=== PATIENT | female | born 1980 | race Two or more races ===

== ENCOUNTER → 2020-10-16 | Outpatient (CLI) | payer BC ==
--- NOTE | 2020-10-16 14:32 | MM ---
Reason for exam: screening (asymptomatic). Baseline mammogram. History: Family history of breast cancer in maternal grandmother. Physical Findings: Nurse did not find any significant physical abnormalities on exam. MG 3D Screening Mammo W/Cad Bilateral CC and MLO view(s) were taken. The breast tissue is heterogeneously dense. This may lower the sensitivity of mammography. There is no discrete abnormality. Focal asymmetry left and right upper outer quadrants. These results were verbally communicated with the patient and result sheet given to the patient on 10/16/20. ASSESSMENT: Benign, BI-RAD 2 RECOMMENDATION: Routine screening mammogram of both breasts in 1 year.
== END | disposition home or self-care (01) ==
LOC: RADMAMWWP 13:28 → MERGE 13:40
PROVIDERS: ATTEND Obstetrics & Gynecology
DX: Z12.31 Encounter for screening mammogram for malignant neoplasm of breast (principal); Z80.3 Family history of malignant neoplasm of breast
CPT/HCPCS: 77063; 77067

== ENCOUNTER → 2022-09-02 | Outpatient (CLI) | payer BC ==
[2022-09-02 23:41] LABS: Basophils # (A) 0.04 X 10*3/uL (0.00-0.10); Basophils % (A) 0.5 %; Eosinophils # (A) 0.15 X 10*3/uL (0.04-0.35); Eosinophils % (A) 1.9 %; HCT 42.9 % (37.2-46.3); HGB 14.2 g/dL (12.0-15.0); Immature Grans, Automated 0.2 %; Lymphocytes # (A) 1.92 X 10*3/uL (0.90-5.00); Lymphocytes % (A) 23.7 %; MCH 29.3 pg (27.0-32.0); MCHC 33.1 g/dL (32.0-37.0); MCV 88.6 fL (80.0-97.0); Mean Platelet Volume 9.3 fL (9.5-12.2); Monocytes # (A) 0.45 X 10*3/uL (0.20-1.00); Monocytes % (A) 5.6 %; NRBC Per 100 WBC 0 /100 WBCS (0.0-0.0); Neutrophils # (A) 5.52 X 10*3/uL (1.80-7.70); Neutrophils % (A) 68.1 %; Platelet Count 349 X 10*3/uL (140-440); RBC 4.84 X 10*6/uL (4.10-5.20); RDW 12.8 % (11.5-14.5)
[2022-09-03 01:41] LABS: African American GFR (CKD) 105.4 (60.0-200.0); Anion Gap 11.5 mmol/L (10.00-18.00); Blood Urea Nitrogen 13.4 mg/dL (9.0-27.0); Carbon Dioxide 24.5 mmol/L (20.0-27.5); Non-African American GFR(CKD) 90.9 (60.0-200.0); Potassium 4.2 mmol/L (3.5-5.5)
[2022-09-03 13:16] LABS: Appearance,Urine Clear (Clear); Bilirubin,Urine Negative (Negative); Blood,Urine Negative (Negative); Color,Urine Yellow (Yellow); Ketones,Urine Negative (Negative); Nitrite,Urine Negative (Negative); PH, Urine 7.5 (5.0-8.0); Specific Gravity,Urine 1.013 (1.001-1.030); Urobilinogen,Urine 0.2 (0.2,1.0)
== END | disposition home or self-care (01) ==
LOC: LABPAT 13:34
PROVIDERS: ATTEND Obstetrics & Gynecology
DX: Z01.812 Encounter for preprocedural laboratory examination (principal); N94.6 Dysmenorrhea, unspecified; N92.0 Excessive and frequent menstruation with regular cycle; D25.9 Leiomyoma of uterus, unspecified
CPT/HCPCS: 80051; 81003; 82565; 82947; 84520; 85025; 87086

== ENCOUNTER 2022-09-09 05:53 | Day surgery (SDC) | payer BC ==
--- NOTE | 2022-08-29 10:47 | HP ---
HISTORY AND PHYSICAL DATE OF SURGERY: 09/09/2022. HISTORY OF PRESENT ILLNESS: The patient is a 41-year-old, 0, para 0, who initially presented to the office with a known fibroid uterus. She has had multiple times of control of both heavy and irregular bleeding with significant dysmenorrhea as well. We did attempt to place a Mirena IUD, but we were unable to do so secondary to the anatomy with a fibroid blocking the entrance to the cervical canal. Oral contraceptive pills at this time had failed to control the symptoms. She is requesting definitive therapy with hysterectomy. Examination demonstrates that she is really only a candidate for da Quinten or open approach. PAST MEDICAL HISTORY: Significant for some colon issues, and otherwise, aforementioned dysmenorrhea and menorrhagia. PAST SURGICAL HISTORY: She had a cholecystectomy in 2004, with no apparent anesthetic concerns. OBSTETRICAL HISTORY: 0, para 0. Current method of contraception is vasectomy. GYNECOLOGIC HISTORY: Unremarkable with no history of any infections to include STDs. FAMILY HISTORY: Noncontributory. 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 She is a nonsmoker and denies any other significant social concerns. CURRENT MEDICATIONS: Include only pre-oral contraceptive pills daily. ALLERGIES: She apparently had a reaction of some sort to penicillin in the past. REVIEW OF SYSTEMS: Confined to history of present illness. PHYSICAL EXAMINATION: VITAL SIGNS: Stable. The patient is afebrile. GENERAL: This is a well-developed, well-nourished, white female, in no acute distress. HEART: Has regular rhythm and rate without murmur. LUNGS: Clear to auscultation bilaterally in all antunez. ABDOMEN: Nondistended, has normoactive bowel sounds, soft, nontender, and without any palpable masses, hepatosplenomegaly, or hernias. EXTREMITIES: Without any cyanosis, clubbing, or edema and are nontender to palpation bilaterally. PELVIC: Bimanual pelvic examination demonstrates a moderately-enlarged uterus with roughly 8 cm posterior uterine fibroid. The adnexa are nonpalpable without any apparent masses bilaterally. ASSESSMENT AND PLAN: Fibroid uterus, menorrhagia, severe dysmenorrhea: As the patient has failed multiple other hormonal manipulation attempts and an intrauterine device was mechanically unable to be placed, she has requested definitive therapy. We will proceed with da Quinten robotically-assisted laparoscopic hysterectomy with bilateral salpingectomy and diagnostic cystoscopy. The risks and complications of the procedure have been thoroughly discussed including the risk for bleeding, bleeding requiring transfusion, infection, and injury to local structures to specifically include the bowel, bladder, and ureters. We additionally discussed injuries that are unique to da Quinten surgery to specifically include thermal injury and vaginal cuff dehiscence. She has understood and agreed to proceed. We are scheduled for the above date with the procedure as outlined. MMODL / IJN: [id number] /
[2022-09-04 15:59] VITALS: BMI 31.1
[2022-09-09] MEDS ORDERED: LACTATED RINGERS 1,000 ML IV SCH ×2 (06:00→10:15)
[2022-09-09] MEDS ORDERED: DEXAMETHASONE SOD PHOSPHATE 4 MG/ML 1 ML VIAL IV ONE (06:00)
[2022-09-09] MEDS ORDERED: ONDANSETRON 4 MG/2 ML VIAL IVP ONE (06:00)
[2022-09-09] MEDS ORDERED: HYDROmorphone 0.5 MG/0.5 ML SYRINGE IVP PRN ×2 (06:00→07:10)
[2022-09-09] MEDS ORDERED: LACTATED RINGERS 1,000 ML IV ONE ×2 (06:45→08:51)
[2022-09-09] MEDS ORDERED: MIDAZOLAM 2 MG/2 ML VIAL IVP ONE (06:56)
[2022-09-09] MEDS ORDERED: ONDANSETRON 4 MG/2 ML VIAL IVP PRN (07:10)
[2022-09-09] MEDS ORDERED: NALOXONE 0.4 MG/ML 1 ML VIAL IV PRN (07:10)
[2022-09-09] MEDS ORDERED: NALBUPHINE 10 MG/ML (1 ML AMP) IV PRN (07:10)
[2022-09-09] MEDS ORDERED: SCOPOLAMINE 1 MG/72 HR PATCH TRANSDERM ONE (07:11)
--- NOTE | 2022-09-09 07:19 | P.ANPRN ---
Procedure Note - Anesthesia - Epidural/Spinal Spinal Time Out Performed: Yes Date of Procedure: 09/09/22 Procedure Start Time: 06:55 Procedure Stop Time: 07:05 Location of Patient: PreOp Indication: Acute Post-Operative Pain Sedation Type: Sedate with meaningful contact maintained Preparation: Sterile Dressing Number of Attempts: 1 (Duramorph spinal (0.4 mg) + fentanyl 25 mcg) Position: Sitting Catheter: None Needle Guage: 25 Blood Aspirated: No Pain Paresthesia on Injection Noted: No Events: Uneventful and Well Tolerated
[2022-09-09] MEDS ORDERED: MORPHINE SULFATE (PF) 0.3 MG/0.3 ML SYR ONE (07:24)
[2022-09-09] MEDS ORDERED: SUCCINYLCHOLINE CHLORIDE 200 MG/10 ML VIAL IV ONE (07:24)
[2022-09-09] MEDS ORDERED: NEOSTIGMINE 1 MG/ML 10 ML VIAL ONE (07:24)
[2022-09-09] MEDS ORDERED: PROPOFOL 10 MG/ML 20 ML VIAL IV ONE (07:24)
[2022-09-09] MEDS ORDERED: LIDOCAINE 2% INJ 20 MG/ML (2 ML VIAL) ONE (07:24)
[2022-09-09] MEDS ORDERED: PHENYLEPHRINE-0.9% NACL SYG 1,000 MCG/10 ML SYRINGE ONE (07:24)
[2022-09-09] MEDS ORDERED: ACETAMINOPHEN IV (For NPO) 1,000 MG/100 ML VIAL ONE (07:24)
[2022-09-09] MEDS ORDERED: GLYCOPYRROLATE 0.2 MG/ML 2 ML VIAL ONE (07:24)
[2022-09-09] MEDS ORDERED: HYDROmorphone (PF) 1 MG/ML ONE (07:24)
[2022-09-09] MEDS ORDERED: ROCURONIUM 10 MG/ML (5 ML VIAL) IV ONE (07:24)
[2022-09-09] MEDS ORDERED: fentaNYL (PF) 50 MCG/ML 2 ML AMP ONE (07:24)
[2022-09-09] MEDS ORDERED: BUPIVACAINE (PF) 0.25% 30 ML VIAL SQ ONE ×2 (08:36→09:57)
[2022-09-09] MEDS ORDERED: METOCLOPRAMIDE 5 MG/ML 2 ML VIAL IVP PRN (10:04)
[2022-09-09] MEDS ORDERED: Acetaminophen-Codeine 300-30mg TAB PO PRN ×2 (10:04)
[2022-09-09] MEDS ORDERED: diphenhydrAMINE 50 MG/ML 1 ML VIAL IVP PRN (10:04)
[2022-09-09] MEDS ORDERED: SIMETHICONE 80 MG CHEWABLE PO PRN (10:04)
[2022-09-09] MEDS ORDERED: IBUPROFEN 600 MG TAB PO PRN (10:04)
[2022-09-09] MEDS ORDERED: KETOROLAC 15 MG/ML 1 ML VIAL IVP PRN (10:04)
--- NOTE | 2022-09-09 10:19 | P.OP ---
Date of Procedure: 09/09/22 Preoperative Diagnosis: 1. Fibroid uterus 2 menorrhagia #3. Severe dysmenorrhea Postoperative Diagnosis: Same Procedure(s) Performed: #1. Laparoscopic robotically-assisted vaginal hysterectomy with bilateral salpingectomy #2. Diagnostic cystoscopy Anesthesia: BRENNEN Surgeon: Jake Liz Bow Maker Production #1: Janeth Garcia Estimated Blood Loss (ml): 100 IV fluids (ml): 1,300 Urine output (ml): 100 Pathology: other (Uterus and bilateral fallopian tubes) Condition: stable Disposition: PACU Operative Findings: Preoperative pelvic examination demonstrated a roughly 7-8 week size uterus with a palpable fibroid on the posterior portion of the uterus. The adnexa were normal bilaterally. Intraoperatively, the uterus was or significantly fibroid then thought. There was a very large posterior fibroid, approximately 8-10 cm with an anterior lower uterine segment fibroid at the bladder flap. The ovaries were otherwise normal as were the tubes. There was no evidence of any other pelvic disease. Following the procedure, the dome of the bladder was undamaged both from a laparoscopic and cystoscopic perspective. The bilateral ureteral orifices were seen to be peristalsing normally. The uterus did require removal of the large posterior fibroid from the fundus in order to be removed and the fibroid was removed following that. Description of Procedure: The patient was prepped and draped in usual fashion after general endotracheal anesthesia was administered by the anesthesiologist. A weighted speculum was placed and Beasley catheter placed. Anterior lip of the cervix was grasped with a single-tooth tenaculum. After some difficulty finding the cervical opening secondary to large posterior fibroid, it was finally found and dilated. Uterus sounded to 10 cm. Serial dilation was carried out to admit a [facility] uterine manipulator with a medium cup which was placed in standard fashion. Attention was then turned to the abdomen where a site was selected approximately 2-3 cm above the umbilicus in the midline where an 8 mm incision was made in the transverse plane. An 8 mm da Quinten optical port was then placed under direct visualization without difficulty. A site was selected approximately 10-12 cm lateral on the left side an approximate 4 cm inferior where an 8 mm incision was made in the transverse plane allowing insertion of an 8 mm da Quinten port under direct vision station without difficulty. A matching port was placed in the right lower quadrant. The distance between the optical port and left lower quadrant port was bisected and a site selected approximately 4-5 cm above the optical port and left upper quadrant where a 10 mm incision was made allowing insertion of a management assistant port under direct visualization without difficulty. After insuring all the trochars were appropriately placed against the abdominal wall, the robot was docked. The left arm was loaded with [place] bipolar cautery forceps in the right arm loaded with a monopolar cautery scissors. I then presented to the console. The left fallopian tube was elevated and sharply dissected from the underlying tissue using the [place] followed by the cautery scissors. At the level of the uterus, the utero-ovarian ligament was cauterized and cut. This was carried through the round ligament at which time the anterior peritoneum and bladder flap could be created. This was carried to the midline. Some dissection of the uterine vasculature was carried out and the uterine vessels were cauterized thoroughly. Attention was turned to the right side where similar operations were carried out. Some difficulty was had in achieving visualization throughout the case secondary to the large posterior fibroid as well as the anterior fibroid. Once the bladder flap had been connected attempts were made to reflected distally. The fibroid created some difficulty in cutting this out. Ultimately, with the use of a Ray-Zay sponge along with sharp dissection, the bladder was pushed distally. This allowed us to identify the uterine vasculature on either side more certainly. Each uterine pedicle was thoroughly cauterized with the [place] bipolar cautery followed by sharply being cut with the monopolar cautery scissors. At this point the cervical cup could be identified. The anterior vagina was opened after placing a sponge in the vagina. Once the cuff was identified and the incision was carried around circumferentially and the uterus divided from the patient. Attempts to remove it intact were unsuccessful secondary to size. As a result the posterior fibroid was grasped and sharply with the monopolar cautery scissors from the remainder of the uterus. This allowed the uterus to be removed without difficulty. The fiber was then also grasped through the vagina and removed. The scissors were then replaced with a laparoscopic suturing device and a stitch of 0 Stratafix suture was passed into the abdomen. The vaginal cuff was closed in standard fashion from cuff angle to cuff angle. Hemostasis appeared to be excellent. I then returned to the patient and remove the Beasley catheter allowing placement of a diagnostic cystoscope into the bladder was filled with sterile water and the dome examined from both sides with no evidence of any leaking or bladder damage. The ureteral orifices were seen to be peristalsing bilaterally. The scope was removed and the Beasley catheter replaced. The robot was undocked from the patient and the ports removed. The ports were then closed with interrupted subcuticular stitches of 4-0 Vicryl followed by half-inch Steri-Strips placed with Mastisol. The incisions were infused with a total of 10 mL of half percent Marcaine without epinephrine, equally divided among the 4 ports. Estimated blood loss for the case was approximately 100 mL. There were no complications. All sponge, instrument, and needle counts were correct. The patient tolerated the procedure well and proceeded to the recovery room in stable condition.
[2022-09-09] MEDS ORDERED: SENNOSIDES-DOCUSATE SODIUM 1 EACH TAB PO SCH (21:00)
[2022-09-09 21:33] VITALS: RESP 16
[2022-09-10 06:47] LABS: Basophils % (A) 0 %; Eosinophils # (A) 0.1 k/uL (0-0.7); Eosinophils % (A) 1 %; HCT 35.8 % (34.0-46.0); HGB 11.8 gm/dL (11.4-16.0); Lymphocytes # (A) 2.5 k/uL (1.0-4.8); Lymphocytes % (A) 30 %; MCH 29.1 pg (25.0-35.0); MCHC 32.9 g/dL (31.0-37.0); MCV 88.6 fL (80.0-100.0); Mean Platelet Volume 7.5; Monocytes # (A) 0.5 k/uL (0-1.0); Monocytes % (A) 6 %; Neutrophils % (A) 61 %; Platelet Count 253 k/uL (150-450); RBC 4.04 m/uL (3.80-5.40); RDW 12.8 % (11.5-15.5); WBC 8.2 k/uL (3.8-10.6)
--- NOTE | 2022-09-10 08:35 | P.PN ---
Progress Note - Text Progress Note Date: 09/10/22 Postoperative day 1 status post robotic vaginal hysterectomy under general endo tracheal anesthesia,, and intrathecal morphine given for postoperative analgesia, patient doing well, there is no anesthesia related complications, Patient had no headache, vital signs stable , Assessment and plan= postop day 1 status post robotic-assisted vaginal hysterectomy, doing well there is no anesthesia related complication.
[2022-09-10 08:41] VITALS: BP 100/58; PULSE 72; TEMP 98.2
--- NOTE | 2022-09-10 08:41 | P.DS ---
Providers Expected date of discharge: 09/10/22 Attending physician: Jake Liz Primary care physician: Stated None - Discharge Diagnosis(es) (1) Dysmenorrhea Current Visit: Yes Status: Acute (2) Fibroid uterus Current Visit: Yes Status: Acute (3) Menorrhagia Current Visit: Yes Status: Acute Hospital Course: the patient is a 41-year-old 0 para 0 who presented the office with a known fibroid uterus. She had complaints of both heavy and irregular bleeding with significant dysmenorrhea. An initial attempt to control this with placement of an IUD failed secondary to the irregularity of the cervical canal secondary to fibroids. Attempts to control the symptoms with oral contraceptives failed as well. She requested definitive therapy and we opted to proceed with da Quinten hysterectomy of with an open approach as the backup. She was taken to the operating room where she underwent da Quinten robotically assisted laparoscopic hysterectomy with bilateral salpingectomy and diagnostic cystoscopy in an uncomplicated fashion. Her postoperative course was unremarkable with vital signs remaining stable and her temperature was afebrile throughout. She was tolerating a regular diet by the evening of surgery and the able to void without difficulty along with having normal bowel function by the morning of postoperative day #1. She was deemed stable for discharge on post operative day #1 was discharged home to follow-up in the office in 2 weeks for incision checks and 8 weeks routinely. Discharge instructions included calling for any significantly increased fever, pain, bleeding, incisional concerns, or anything else that concerned her. She was additionally instructed to have nothing in the vagina for at least 8 weeks time to include intercourse. She is to abstain from driving until off of all pain medications or 2 weeks' time, whichever came first. She understood all of her instructions and agrees to follow up as noted above. Discharge medications included any home medications as well as a prescription for Tylenol No. 3, 1-2 by mouth every 6 hours when necessary pain, #20 dispensed with no refills. discharge hemoglobin and hematocrit were 11.8 and 35.8 respectively. Procedures: #1. Da Quinten robotically assisted laparoscopic hysterectomy with bilateral salpingectomy #2. intraoperative laparoscopic uterine morcellation #3.Diagnostic cystoscopy Patient Condition at Discharge: Stable Plan - Discharge Summary Discharge Rx Participant: Yes New Discharge Prescriptions: No Action No Known Home Medications Discharge Medication List No Known Home Medications 09/04/22 [History] Follow up Appointment(s)/Referral(s): Jake Liz MD [STAFF PHYSICIAN] - 2 Weeks Discharge Disposition: HOME SELF-CARE
[2022-09-10] MEDS ORDERED: ACETAMINOPHEN TAB 325 MG TAB PO PRN (10:07)
== END 2022-09-10 09:04 | disposition home or self-care (01) ==
LOC: OR 05:53 → 4FBP 09:57 → OR 09-10 09:04
PROVIDERS: ATTEND Obstetrics & Gynecology
DX: D25.9 Leiomyoma of uterus, unspecified (principal); N92.0 Excessive and frequent menstruation with regular cycle; N94.6 Dysmenorrhea, unspecified; Z90.49 Acquired absence of other specified parts of digestive tract; Z88.0 Allergy status to penicillin
CPT/HCPCS: 81025; 86900; 86901; 85025; 86850; 88307; 58552; J2250; J0330; J1200; J1100; J2710; J0690; J2405; J2274; J3010; J1170; J0131; J1885; J2370; J2704; J2001